=== PATIENT | male | born 1975 | race Caucasian/White ===

== ENCOUNTER → 2023-07-11 | Day surgery (SDC) | payer BC, OTHER ==
[2023-07-11 11:46] VITALS: TEMP 98
[2023-07-11 11:57] VITALS: BP 129/74; PULSE 67; RESP 19
== END | disposition home or self-care (01) ==
LOC: JASU-ENDO 04:39
PROVIDERS: ATTEND Internal Medicine Gastroenterology
PROC: 0DBB8ZX Excision of Ileum, Via Natural or Artificial Opening Endoscopic, Diagnostic (ICD-10-PCS; principal; 2023-07-11 10:30)
DX: Z51.11 Encounter for antineoplastic chemotherapy (principal); K50.90 Crohn's disease, unspecified, without complications
CPT/HCPCS: 88305-TC